=== PATIENT | female | born 1995 | race Caucasian/White ===

== ENCOUNTER 2017-04-20 02:44 | Inpatient (IN) | payer BC ==
[2017-04-20] MEDS ORDERED: Nalbuphine 10 MG/1 ML Vial IVPUSH ONE (03:24)
[2017-04-20] MEDS ORDERED: Lactated Ringers 500 ML IV ONE (03:28)
[2017-04-20] MEDS ORDERED: Carboprost Tromethamine 250 MCG/1 ML Amp IM PRN (03:28)
[2017-04-20] MEDS ORDERED: Ondansetron 4 MG/2 ML SDV IV PRN (03:28)
[2017-04-20] MEDS ORDERED: Methylergonovine 0.2 MG/1 ML Amp IM PRN (03:28)
[2017-04-20] MEDS ORDERED: Sodium Chloride 0.9% 10 ML Syringe FLUSH PRN ×2 (03:28→14:53)
[2017-04-20] MEDS ORDERED: Lidocaine 1% 30 ML SDV INJECT PRN (03:28)
[2017-04-20] MEDS ORDERED: Misoprostol 400 MCG (4 X 100 MCG TAB) RECTAL PRN (03:28)
[2017-04-20] MEDS ORDERED: Oxytocin/Normal Saline 30 UNIT/500 ML BAG IV SCH ×2 (03:45→07:45)
[2017-04-20] MEDS: Lactated Ringers 1,000 ML IV SCH ×4 (04:14→09:42)
[2017-04-20] MEDS ORDERED: Promethazine 25 MG/ML SDV IM ONE (04:45)
[2017-04-20] MEDS ORDERED: fentaNYL 100 MCG/2 ML SDV ONE ×3 (04:47→09:47)
[2017-04-20] MEDS: Ampicillin/Sulbactam Na 3 GM in Sodium Chloride 0.9% 100 ML IV SCH ×4 (04:57→19:14)
--- NOTE | 2017-04-20 05:46 | PCM.PRNOTE ---
- Free Text/Narrative Note: Called to place intrathecal for relief of labor pain in this patient. Upon review of Labs, WBC elevated more than usual for laboring patients (17.7), pt was afebrile, however. Even so, for precaution, had patient recieve antibiotics prior to starting intrathecal ( 3 gms unasyn iv per Dr. Hernandez). Then, after consent signed and monitors on, proceeded to intrathecal. With patient in sitting position, sterile prep and drape. Skin wheal at L3-4 with 1 % lidocaine. 2-3 attempts. Positive, clear, free flowing CSF, with no heme and no paresthesia. Then 6mg mpf, hyperbaric spinal 0.75% marcaine, 20mcg sufenta, 30mcg fentanyl, 0.4ml preservative free normal saline plus epi wash given intrathecally. Pt then supine; block to around T4. Pt's B/P and FHT's remained stable after. Pt reported pain relief with further contractions.
[2017-04-20] MEDS ORDERED: fentaNYL 100 MCG/2 ML SDV IVPUSH ONE (09:27)
[2017-04-20] MEDS ORDERED: Ibuprofen 800 MG Tab ONE (14:36)
[2017-04-20] MEDS: Ibuprofen 800 MG Tab PO PRN ×2 (14:36→23:34)
[2017-04-20] MEDS: Acetaminophen 325 MG Tab PO PRN ×2 (14:36→20:04)
[2017-04-20] MEDS ORDERED: Acetaminophen 325 MG Tab PO PRN (14:40)
[2017-04-20] MEDS ORDERED: Benzocaine/Menthol 20%-0.5% Spray 56 GM Canister TOP PRN (14:53)
[2017-04-20] MEDS ORDERED: Zolpidem 5 MG Tab PO PRN (14:53)
[2017-04-20] MEDS ORDERED: Simethicone 80 MG Tab.Chew PO PRN (14:53)
[2017-04-20] MEDS ORDERED: fentaNYL 100 MCG/2 ML SDV ITHECAL ONE (16:04)
[2017-04-20] MEDS: Docusate Sodium 100 MG Cap PO PRN (20:01)
--- NOTE | 2017-04-20 22:24 | DEL ---
DATE: 04/20/2017 DESCRIPTION: Mrs. Bates has proceeded on very nicely and the heart tones have remained within normal limits, are category 1 in the 2nd stage of labor. She was able to push very nicely and have a spontaneous vaginal delivery from the occiput anterior position of a viable baby boy, who had scores of 8 and 9. The baby boy's weight is still pending. A sample of cord blood was obtained from the umbilical cord, and the placenta is delivered spontaneously and intact. Close inspection of the placenta reveals that it indeed is intact. No episiotomy was done. She did sustain a second-degree perineal and vaginal laceration, which was very closely inspected. The patient did have intrathecal analgesia previously and then also because of her discomfort while I was trying to inspect and repair the laceration, she was also given 50 mg of IV fentanyl initially and then the perineum and vaginal tissues were liberally infiltrated with 1% lidocaine local, and then a short time later, because it was still difficult to get optimum exposure and to give the patient the best pain relief and analgesia, I did give her another 25 mg of fentanyl IV, this seem to help her. I did a very careful and gentle rectal exam before starting the repair just to make sure that there was not an unrecognized buttonhole 4th degree tear of a small nature. None was found on my careful inspection and visualization on the rectal exam. That contaminated glove was now removed and using another clean glove of course, we proceeded to repair the vaginal laceration in the usual fashion. We used 3-0 Vicryl continuous suturing locking many of the sutures for hemostasis. This brought the perineal body and vaginal epithelium together nicely. The vital signs have remained stable at all times. Her estimated blood loss from the entire procedure is approximately 300 mL. The needle, sponge, and instrument count is correct. Only minimal further clots are expressed on the vaginal and fundal exam again at the end of the procedure. The fundus remained firm. She has remained very stable as mentioned above in the area. She and her baby continue to do very well. Follow up instructions will be emphasized with her carefully in her discharge summary and at the time of discharge. [facility] /[id number]
[2017-04-21] MEDS: Acetaminophen 325 MG Tab PO PRN ×4 (04:10→21:00)
[2017-04-21] MEDS: Docusate Sodium 100 MG Cap PO PRN (08:13)
[2017-04-21] MEDS: Ibuprofen 800 MG Tab PO PRN ×2 (08:14→17:10)
[2017-04-21] MEDS: Prenatal Multivitamin with Calcium/Folic Acid/Iron Tab PO SCH (11:48)
--- NOTE | 2017-04-21 14:39 | PN ---
DATE: 04/21/2017 SUBJECTIVE: Argelia is somewhat stiff and sore today from the pushing that she did yesterday. She did have a good night's rest. She is tolerating diet and having adequate hydration and healthy well-balanced nutrition. Her baby boy Gabriel Rincon is somewhat slow to feed and the nurses in the nursery and baby doctor Dr. Leugn are coordinating with the patient regarding this matter. OBJECTIVE: Her vital signs are normal including being afebrile. Her repeat CBC is still pending. She did have white count of 17,700 yesterday. This was felt to be due to the stress of labor and no signs of actual sepsis were suspected. Her extremities are negative today. The fundus is firm. Her lochia flow is within normal limits. PLAN: immigration consultant as well as nursery nurses and Dr. Leung. We will continue to coordinate with the patient regarding the slow feeding of her baby boy. Dr. Cohen would possibly do future circumcision, but of course, if the baby continues to not feed well, the circumcision will be delayed. Otherwise, the patient would be discharged tomorrow on Saturday. Further followup and discharge instructions of a thorough nature will be discussed with Wanda tomorrow at discharge. She will continue to do progressive ambulation at this time. Healthy well balanced nutritional measures and adequate hydration are discussed with her. As mentioned above, repeat CBC is still pending. Baby boy's weight yesterday was later reported as 6 pounds 15 ounces. [facility] /[id number]
--- NOTE | 2017-04-21 18:32 | PCM.POSTAN ---
POST ANESTHESIA ASSESSMENT - MENTAL STATUS Mental Status: alert - VITAL SIGNS Pulse Rate: 86 SaO2: 97 Resp Rate: 16 Blood Pressure: 102/56 Temperature: 36.6 C - RESPIRATORY Respiratory Status: respiratory rate WNL - CARDIOVASCULAR CV Status: pulse rate WNL - GASTROINTESTINAL GI Status: no symptoms - PAIN Free Text/Narrative:: pt c/o minor discomfort at site of intrathecal injection, not requiring meds at this time. - POST OP HYDRATION Hydration Status: adequate & stable (Pt c/o minor, localized numbness around her Left knee. I will evaluate her tomorrow and advise her re: plan if it is still present)
[2017-04-21] MEDS ORDERED: Acetaminophen/Codeine 300-30 MG Tab PO ONE (21:31)
[2017-04-21] MEDS ORDERED: hydrOXYzine HCl 25 MG Tab PO PRN (21:33)
[2017-04-22] MEDS: Ibuprofen 800 MG Tab PO PRN ×2 (01:46→10:50)
[2017-04-22] MEDS ORDERED: Acetaminophen/Codeine 300-30 MG Tab PO PRN (06:03)
--- NOTE | 2017-04-22 09:23 | HP ---
HISTORY: This patient was seen and examined before she did actually deliver her baby. She did come in to Labor and Delivery area early in the morning of 04/20/2017. She has had frequent false labor off and on for 2 to 3 days recently. I have seen her in the clinic on 04/20/2017, and actually, her cervix was so posterior that I could not reach it. She has been experiencing good movement. She is known to be GBS negative. She denies any significant complications that she is aware of. Please see the EHR from the clinic for further detail. I have seen the patient 2 or 3 times prenatally and most of the time, Dr. Cohen has followed her. We did note that her white blood cell count was 17,700 this morning on admission, and I do believe that may be just from her laboring that she has had before she came into the hospital. She did come into the hospital at 4 to 5 cm of dilatation. Bag of fontanez was intact by history. Anesthesia did ask that antibiotics be given before the intrathecal would be given. Anesthesia was wondering if possibly the patient might have urinary tract infection. The patient denies any fever. Denies any cough. There is no tachycardia at the present time and no foul leaking of amniotic fluid. We did begin Unasyn 3 mg IV. I strongly doubt any intra-amniotic infection as such, but at the request of Anesthesia and so that she could get her intrathecal, we did administer the antibiotic. Interestingly, she did have some swelling of the tongue, but no true respiratory difficulty after Unasyn was given. We are going to therefore discontinue her Unasyn and Benadryl was given and we will label her as apparently being allergic to Unasyn or as a penicillin, sulbactam allergy. PAST MEDICAL HISTORY: She denies any knowledge of heart, lung, liver, or kidney disease. ALLERGIES: Please see above. MEDICATIONS: At present, vitamins. FAMILY HISTORY: Noncontributory. 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 She is a nonsmoker. Does not use alcohol. Denies any illicit drug use, of course. PHYSICAL EXAMINATION: VITAL SIGNS: Admission vital signs are within normal limits. Please see the EHR for further detail. HEENT: The remainder of her physical exam reveals the sclerae to be nonicteric. LUNGS: Clear to auscultation. HEART: Regular rhythm without murmur. ABDOMEN: Gravid with category 1 heart tones. The vertex as the presenting part. These category 1 heart tones, of course, have moderate variability and nice accelerations. Estimated weight is 7 pounds 6 ounces. The cervical examination on admission by the nurses revealed her to be 4 to 5 cm. My examination later reveals her to be 9 cm and actually she does convert to complete and has started pushing. EXTREMITIES: Negative. PELVIS: Thought to be adequate, of course. Please see the admission orders. I do anticipate normal spontaneous vaginal delivery. [facility] /[id number]
[2017-04-22 10:38] VITALS: BP 117/77
[2017-04-22] MEDS: Docusate Sodium 100 MG Cap PO PRN (10:50)
[2017-04-22] MEDS: Prenatal Multivitamin with Calcium/Folic Acid/Iron Tab PO SCH (10:50)
--- NOTE | 2017-04-22 10:52 | PCM.SN ---
- Free Text/Narrative Note: Visited with patient again this am prior to d/c, specifically regarding small area of numbness around Left knee. Pt reports that it has improved today, and that she has no motor dysfunction. Encouraged patient to inform us if any changes occur, and to continue taking motrin. I told patient that it should continue to resolve, and to let us know if it worsened.
--- NOTE | 2017-04-24 04:30 | DISCH ---
LOCATION: [facility]. HISTORY OF PRESENT ILLNESS: This patient is a very pleasant 22-year-old, 1, now para 1 patient, who has been followed most of the time by Dr. Cohen during this . She was at 40 weeks 1 day gestation when she entered Labor And Delivery area in very good labor. She has had frequent false labor for several days before that. The patient was 4 to 5 cm dilated when she arrived at Labor and Delivery. Her course has been quite unremarkable. She is known to be GBS negative. Please see the EHR for the remainder of her course and lab data. She was noted to have a white blood cell count of 17,700 in Labor And Delivery, and this also was noted by Anesthesia Department. Anesthesia did ask that the patient have antibiotics to proceed with an intrathecal anesthesia. The patient herself was afebrile. There was no cough. No urinary symptoms. No tachycardia, and no foul smelling amniotic fluid, and no suspicion for chorioamnionitis as such. IV Unasyn 3 g was given to the patient. The patient was noted a while later to have some tongue swelling that presumably is due to either the ampicillin or the sulbactam in Unasyn. She had no respiratory difficulty otherwise other than the tongue noted to be slightly swollen. heart tones have remained in category 1. She has done very well during the intrapartum course. She did proceed on very nicely to have a spontaneous vaginal delivery of a viable boy, who had scores of 8 and 9 and his weight was later reported as 6 pounds 15 ounces, and his name is Gabriel Rincon. The patient did not have an episiotomy. She did sustain a second-degree vaginal and perineal laceration which was repaired very carefully in the usual fashion. Please see my dictated delivery note as well as her dictated admission history and physical. Estimated blood loss was approximately 300 mL at delivery. The patient has done quite well in the course and her baby is somewhat slow to breastfeed and this is being followed closely by business consultant, nursery nurses, and baby doctor Dr. Leung. She did develop a migraine headache the night before we were going to discharge her and she did get some relief with Tylenol #3, and then her headaches seem to come back somewhat, so we did give her Vistaril 25 mg p.o. which seem to abolish her headache. She also noted to me and also reported to Anesthesia that she did have some slight numbness around the skin in a couple of small areas on her left knee cap area. She also states that this has better and seems to be less on the day of discharge. She has no motor or ambulatory difficulties whatsoever. Her extremity examination otherwise is totally negative including no calf or thigh tenderness, and no presence of a Isidro's sign. Anesthesia and I have reviewed her skin numbness, which appears to be getting better with the patient. I do suspect that this will continue to resolve as each week passes and possibly this was a slight and transient peripheral neuropathy from all of her pushing and pelvic nerve pressure during the intrapartum course. The patient is discharged home today on 04/22/2017 in good condition. Her discharge hemoglobin is 9.1. DISCHARGE MEDICATIONS: Will consist of vitamins with iron 1 daily, and also she will utilize either ibuprofen or acetaminophen p.r.n. as well as Colace p.r.n. She also was given a prescription for Vistaril 25 mg, 1 p.o. q.8h to q.12h p.r.n. headache #12, no refills. The importance of healthy well-balanced dietary measures were discussed with her. Adequate hydration was also discussed. The baby appears to be feeding somewhat better and this will be closely monitored by nursery staff and business consultant. She will do gradual progressive ambulation at home. She will call us at once if any questions or problems whatsoever. We did ask her to contact us if any excessive bleeding, excess pain, or fever, also if any persistent or changing problems with her legs, breasts, episiotomy site, abdomen, lungs, etc., she will definitely keep us informed. Her headache is gone at the present time also. FOLLOWUP APPOINTMENT: She will be seeing Dr. Cohen this coming week on approximately Saturday. Baby boy Will Sergey circumcision will be addressed in the near future. Possibly. FINAL DIAGNOSES: 1. Term , delivered. 2. History of migraine. PROCEDURES: Spontaneous vaginal delivery of viable boy, weighing 6 pounds, 15 ounces and having scores of 8 and 9. Repair of second-degree perineal and vaginal laceration by Dr. Joao Hernandez on 04/20/2017. [facility] /[id number]
== END 2017-04-22 16:30 | disposition home or self-care (01) | DRG 560 ==
LOC: DL.OBCHECK 02:44 → DL.OB 03:19 → OBSVTOIN 09:26
PROVIDERS: ADMIT Family Medicine; ATTEND Obstetrics & Gynecology
PROC: 0KQM0ZZ Repair Perineum Muscle, Open Approach (ICD-10-PCS; principal; 2017-04-20)
PROC: 10E0XZZ Delivery of Products of Conception, External Approach (ICD-10-PCS; 2017-04-20)
PROC: 00HU33Z Insertion of Infusion Device into Spinal Canal, Percutaneous Approach (ICD-10-PCS; 2017-04-20)
DX: O70.1 Second degree perineal laceration during delivery (principal); R22.9 Localized swelling, mass and lump, unspecified; O90.89 Other complications of the puerperium, not elsewhere classified; G43.909 Migraine, unspecified, not intractable, without status migrainosus; R20.0 Anesthesia of skin; Z3A.40 40 weeks gestation of pregnancy; Z37.0 Single live birth
CPT/HCPCS: 36415; 85027; A9270-GY; J0295; J2300; J2550; J2590; J3010; J7050; J7120

== ENCOUNTER 2018-05-24 23:38 | Emergency (ER) | payer BC ==
[2018-05-24 23:51] VITALS: BP 129/81
[2018-05-24] MEDS ORDERED: Ketorolac 30 MG/ML SDV IVPUSH ONE (23:54)
[2018-05-24] MEDS ORDERED: Sodium Chloride 0.9% 1,000 ML IV ONE (23:54)
[2018-05-24] MEDS ORDERED: Metoclopramide 10 MG/2 ML SDV IVPUSH ONE (23:55)
--- NOTE | 2018-05-25 00:41 | EDM.PDOC ---
ED HPI GENERAL MEDICAL PROBLEM - General Chief Complaint: Headache Stated Complaint: MIGRAINE [id number] Time Seen by Provider: 05/25/18 00:37 Source of Information: Reports: Patient History Limitations: Reports: No Limitations - History of Present Illness INITIAL COMMENTS - FREE TEXT/NARRATIVE: h/o migraine onset today tried OTC but '0' . been vomiting. 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: Reports: Endometriosis, Musculoskeletal History: Reports: None Neurological History: Reports: Migraines Psychiatric History: Reports: None Endocrine/Metabolic History: Reports: None Hematologic History: Reports: Anemia Immunologic History: Reports: None Oncologic (Cancer) History: Reports: None Dermatologic History: Reports: None - Infectious Disease History Infectious Disease History: Reports: Chicken Pox - Past Surgical History Head Surgeries/Procedures: Reports: None HEENT Surgical History: Reports: Adenoidectomy, Oral Surgery, Tonsillectomy Social & Family History - Family History Family Medical History: Noncontributory - Tobacco Use Smoking Status *Q: Never Smoker - Caffeine Use Caffeine Use: Reports: Coffee - Recreational Drug Use Recreational Drug Use: No ED ROS GENERAL - Review of Systems Review Of Systems: ROS reveals no pertinent complaints other than HPI. - Physical Exam Exam: See Below Exam Limited By: No Limitations General Appearance: Alert, WD/WN, Mild Distress, Moderate Distress, Other ( crying) Eye Exam: Bilateral Eye: PERRL (pupils ER @ 4mm, photophobic) Ears: Hearing Grossly Normal Throat/Mouth: Normal Voice, No Airway Compromise Head Exam: Atraumatic Neck: Non-Tender, Full Range of Motion Respiratory/Chest: No Respiratory Distress Cardiovascular: Regular Rate, Rhythm GI/Abdominal: Soft, Non-Tender Neuro Exam (Abbreviated): Alert, Oriented, Normal Cognition, Normal Gait, No Motor/Sensory Deficits Psychiatric: Tearful Skin Exam: Warm, Dry, Normal Color Course - Vital Signs Last Recorded V/S: Last Vital Signs Temp 36.6 C 05/24/18 23:47 Pulse 84 05/24/18 23:47 Resp 18 05/24/18 23:47 BP 129/81 05/24/18 23:47 Pulse Ox 100 05/24/18 23:47 - Orders/Labs/Meds Orders: Active Orders 24 hr Category Date Time Status Sodium Chloride 0.9% [Normal Saline] 1,000 ml Med 05/24/18 23:54 Active IV .BOLUS Medication Orders Sodium Chloride (Normal Saline) 1,000 mls @ 999 mls/hr IV .BOLUS ONE Stop: 05/25/18 00:54 Last Admin: 05/25/18 00:03 Dose: 999 mls/hr Meds: Medications Generic Name Dose Route Start Last Admin Trade Name Freq PRN Reason Stop Dose Admin Sodium Chloride 1,000 mls @ 999 mls/hr 05/24/18 23:54 05/25/18 00:03 Normal Saline IV 05/25/18 00:54 999 mls/hr .BOLUS ONE Administration Discontinued Medications Generic Name Dose Route Start Last Admin Trade Name Freq PRN Reason Stop Dose Admin Ketorolac Tromethamine 30 mg 05/24/18 23:54 05/25/18 00:06 Toradol IVPUSH 05/24/18 23:55 30 mg ONETIME ONE Administration Metoclopramide HCl 10 mg 05/24/18 23:55 05/25/18 00:04 Reglan IVPUSH 05/24/18 23:56 10 mg ONETIME ONE Administration Departure - Departure Time of Disposition: 00:41 Disposition: Home, Self-Care 01 Condition: Good Clinical Impression: Migraine - Discharge Information Instructions: Recurrent Migraine Headache, [id number] Forms: ED Department Discharge Additional Instructions: 1) rest 2) recheck as needed - My Orders Last 24 Hours: My Active Orders 05/24/18 23:54 Sodium Chloride 0.9% [Normal Saline] 1,000 ml IV .BOLUS - Assessment/Plan Last 24 Hours: My Active Orders 05/24/18 23:54 Sodium Chloride 0.9% [Normal Saline] 1,000 ml IV .BOLUS
== END 2018-05-25 00:38 | disposition home or self-care (01) ==
LOC: DL.ED 23:38
DX: G43.909 Migraine, unspecified, not intractable, without status migrainosus (principal); Z79.899 Other long term (current) drug therapy; Z88.8 Allergy status to other drugs, medicaments and biological substances
CPT/HCPCS: 96365; 96375; 99283; J1885; J2765; J7030

== ENCOUNTER 2020-02-11 21:17 | Inpatient (IN) | payer BC ==
[2020-02-11] MEDS ORDERED: Oxytocin/Normal Saline 30 UNIT/500 ML BAG ONE (22:12)
[2020-02-11] MEDS ORDERED: fentaNYL 100 MCG/2 ML SDV ONE (22:13)
[2020-02-11] MEDS ORDERED: EPINEPHrine 1 MG/1 ML Amp ONE (22:14)
[2020-02-11] MEDS: Lactated Ringers 1,000 ML IV SCH ×3 (22:15→22:32)
[2020-02-11] MEDS ORDERED: Sodium Chloride 0.9% 10 ML Syringe FLUSH PRN (22:25)
[2020-02-11] MEDS ORDERED: Lidocaine 1% 30 ML SDV INJECT PRN (22:25)
[2020-02-11] MEDS ORDERED: Tranexamic Acid 1,000 MG in Sodium Chloride 0.9% 100 ML IV PRN (22:25)
[2020-02-11] MEDS ORDERED: Ondansetron 4 MG/2 ML SDV IVPUSH PRN (22:25)
[2020-02-11] MEDS ORDERED: Carboprost Tromethamine 250 MCG/1 ML Amp IM PRN (22:25)
[2020-02-11] MEDS ORDERED: Methylergonovine 0.2 MG/1 ML Amp IM PRN (22:25)
[2020-02-11] MEDS ORDERED: Misoprostol 400 MCG (4 X 100 MCG TAB) RECTAL PRN (22:25)
[2020-02-11] MEDS ORDERED: Metoclopramide 10 MG/2 ML SDV IVPUSH PRN (22:29)
[2020-02-11] MEDS ORDERED: Oxytocin/Normal Saline 30 UNIT/500 ML BAG IV SCH (22:30)
--- NOTE | 2020-02-11 22:46 | PCM.LDHP ---
L&D History of Present Illness - General Date of Service: 02/11/20 (admit H&P) Admit Problem/Dx: Patient Status Order with Admit Dx/Problem 02/11/20 22:00 Patient Status [ADT] Routine Admission Diagnosis/Problem Admission Diagnosis/Problem Labor established Source of Information: Patient, Family, Provider, Other (EPIC episode and notes/problem list) History Limitations: Reports: No Limitations - History of Present Illness Timing/Duration: Reports: minutes: (3), getting worse Location, : Reports: Uterus Quality: Reports: Pressure Severity: Moderate - Related Data Allergies/Adverse Reactions: Allergies Allergy/AdvReac Type Severity Reaction Status Date / Time ondansetron Allergy Headache Verified 10/04/18 12:31 [From Zofran (as hydrochloride)] Home Medications: Home Meds No122/Iron/Folic Acid [ Multi Tablet] 1 tab PO DAILY 02/10/17 [ History] Ascorbic Acid/Ascorbate Sodium [Vitamin C 500 mg Wafer] 500 mg PO DAILY [History] Ferrous Sulfate [Iron] 1 tab PO DAILY 02/11/20 [History] L.acidoph,Paracasei, B.lactis [Probiotic] 1 tab PO DAILY 02/11/20 [History] Past Medical History HEENT History: Reports: None Cardiovascular History: Reports: None Respiratory History: Reports: None Gastrointestinal History: Reports: None Genitourinary History: Reports: None 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: Endometriosis, Musculoskeletal History: Reports: None Neurological History: Reports: Migraines Psychiatric History: Reports: None Endocrine/Metabolic History: Reports: None Hematologic History: Reports: Anemia Immunologic History: Reports: None Oncologic (Cancer) History: Reports: None Dermatologic History: Reports: None - Infectious Disease History Infectious Disease History: Reports: Chicken Pox - Past Surgical History Head Surgeries/Procedures: Reports: None HEENT Surgical History: Reports: Adenoidectomy, Oral Surgery, Tonsillectomy Social & Family History - Family History Family Medical History: Noncontributory - Tobacco Use Smoking Status *Q: Never Smoker Tobacco Use Within Last Twelve Months: No Used Tobacco, but Quit: No Smoking Cessation Information Provided To Patient: No - Caffeine Use Caffeine Use: Reports: Coffee - Alcohol Use Alcohol Use History: No Alcohol Use in Last Twelve Months: No - Recreational Drug Use Recreational Drug Use: No Drug Use in Last 12 Months: No - Sexual History Sexual History: Reports: Single Partner, Vaginal [place] - Living Situation & Occupation Living situation: Reports: , with Family Occupation: Employed Social History Comment: to Tamir. Son Will. 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 They live near [place]. 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 Nonsmoker and no hx ETOH or drug abuse. They are delighted to be expecting another child. [facility] H&P Review of Systems - Review of Systems: Review Of Systems: Comprehensive ROS is negative, except as noted in HPI. L&D Exam - Exam Exam: See Below - Vital Signs Vital Signs: see nursing graphic afebrile, VSS - OB Specific Fundal Height In cm: 40 Contraction Frequency (min): 3 Contraction Intensity: Moderate Movement: Active Heart Tones: Present Heart Tones per Min: 150 (145-150s) Heart Rate (FHR) Variability: Moderate (6-25 bmp) Presentation: Vertex Estimated Weight: 8 1/2 lb - Guevara Score Guevara Score Cervix Position: Anterior Guevara Score Consistency: Soft Guevara Score Effacement: 51-70% Guevara Score Dilation: > 5 cm Guevara Score Infant's Station: +1, +2 Guevara Score Total: 12 - Exam General: Alert, Oriented HEENT: Conjunctiva Clear, Nares Patent, Pupils Equal, Pupils Reactive Neck: Supple Lungs: Clear to Auscultation, Normal Respiratory Effort Cardiovascular: Regular Rate, Regular Rhythm GI/Abdominal Exam: Normal Bowel Sounds, Soft Rectal Exam: Normal Exam Genitourinary: Cervical dilitation (anterior rim, soft, 1cm rim left just in the front (was 6 cm on arrival)), Cervical fluid (AROM clear fluid) Back Exam: Normal Inspection, Full Range of Motion Extremities: Normal Inspection, Non-Tender, No Pedal Edema, Normal Capillary Refill Skin: Warm, Dry, Intact Neurological: Normal Speech, Normal Tone, Sensation Intact Psychiatric: Alert, Normal Affect - Patient Data Lab Results Last 24 hrs: Laboratory Results - last 24 hr 02/11/20 Range/Units 21:48 WBC 14.8 H (5.0-10.0) 10^3/uL RBC 4.14 L (4.2-5.4) 10^6/uL Hgb 12.6 D (12.0-16.0) g/dL Hct 36.6 L (37.0-47.0) % MCV 88.4 D (80-100) fL MCH 30.4 (27.0-34.0) pg MCHC 34.4 (33.0-35.0) g/dL Plt Count 247 D (150-450) 10^3/uL Result Diagrams: 02/11/20 21:48 - Problem List (1) First stage of labor established SNOMED Code(s): 651679393 ICD Code: [id number] - Status: Acute Current Visit: Yes (2) Blood type O+ SNOMED Code(s): 447867932 ICD Code: Z67.40 - TYPE O BLOOD, RH POSITIVE Status: Acute Current Visit : Yes (3) Rubella immune SNOMED Code(s): 259320613 ICD Code: Z78.9 - OTHER SPECIFIED HEALTH STATUS Status: Acute Current Visit: Yes (4) Group B Streptococcus not isolated SNOMED Code(s): 081156686 ICD Code: LSI7071 - Status: Acute Current Visit: Yes (5) Mother currently breast-feeding SNOMED Code(s): 681197683 ICD Code: Z39.1 - ENCOUNTER FOR CARE AND EXAMINATION OF LACTATING MOTHER Status: Acute Current Visit: Yes (6) Macrosomic baby SNOMED Code(s): 05120874 ICD Code: P08.0 - EXCEPTIONALLY LARGE BABY Status: Acute Current Visit: Yes (7) (spontaneous vaginal delivery) SNOMED Code(s): 271294159 ICD Code: O80 - ENCOUNTER FOR FULL-TERM UNCOMPLICATED DELIVERY Status: Acute Current Visit: Yes (8) Term delivered SNOMED Code(s): 62604665, 210982457 ICD Code: O80 - ENCOUNTER FOR FULL-TERM UNCOMPLICATED DELIVERY Status: Acute Current Visit: Yes Problem List Initiated/Reviewed/Updated: Yes Orders Last 24hrs: Active Orders 24 hr Category Date Time Status Patient Status [ADT] Routine ADT 02/11/20 22:00 Active Communication Order [RC] ASDIRECTED Care 02/11/20 22:25 Ordered Heart Tones [RC] PER UNIT ROUTINE Care 02/11/20 22:25 Ordered Notify Provider Vital Signs OB [RC] ASDIRECTED Care 02/11/20 22:25 Ordered Notify Provider [RC] PRN Care 02/11/20 22:25 Ordered Pump Management, Intrathecal [RC] ASDIRECTED Care 02/11/20 21:42 Active Up ad Marci [RC] ASDIRECTED Care 02/11/20 22:25 Ordered Vital Signs [RC] PER UNIT ROUTINE Care 02/11/20 22:25 Ordered Acetaminophen [Tylenol] Med 02/11/20 22:25 Ordered 650 mg PO Q4H PRN Carboprost Tromethamine [Hemabate DS] Med 02/11/20 22:25 Ordered 250 mcg IM ASDIRECTED PRN Lactated Ringers [Ringers, Lactated] 1,000 ml Med 02/11/20 21:45 Active IV ASDIRECTED Lidocaine 1% [Xylocaine-MPF 1%] Med 02/11/20 22:25 Ordered 30 ml INJECT ASDIRECTED PRN Methylergonovine [Methergine] Med 02/11/20 22:25 Ordered 0.2 mg IM ASDIRECTED PRN Metoclopramide [Reglan] Med 02/11/20 22:29 Ordered 10 mg IVPUSH ONETIME PRN Ondansetron [Zofran] Med 02/11/20 22:25 Ordered 4 mg IVPUSH Q4H PRN Oxytocin 30 Units in NS @ 2 MUNITS/MIN(500ml) Med 02/11/20 22:30 Ordered Oxytocin/Normal Saline [Pitocin in NS 30 UNIT/500 ML] 30 unit in 500 ml IV TITRATE Sodium Chloride 0.9% [Saline Flush] Med 02/11/20 22:25 Ordered 10 ml FLUSH ASDIRECTED PRN Tranexamic Acid [Cyklokapron] 1,000 mg Med 02/11/20 22:25 Ordered Sodium Chloride 0.9% [Normal Saline] 100 ml IV ONETIME miSOPROStoL [Cytotec] Med 02/11/20 22:25 Ordered 800 mcg RECTAL ASDIRECTED PRN Saline Lock Insert [OM.PC] Routine Oth 02/11/20 22:25 Ordered Resuscitation Status Routine Resus Stat 02/11/20 22:25 Ordered Medication Orders Acetaminophen (Tylenol) 650 mg PO Q4H PRN PRN Reason: Pain (Mild 1-3) and fever Carboprost Tromethamine (Hemabate Ds) 250 mcg IM ASDIRECTED PRN PRN Reason: HEMORRHAGE Lactated Ringer's (Ringers, Lactated) 1,000 mls @ 125 mls/hr IV ASDIRECTED JAMIR Last Admin: 02/11/20 22:32 Dose: 125 mls/hr Infusion: 02/11/20 22:32 Dose: 125 mls/hr Admin: 02/11/20 22:18 Dose: 125 mls/hr Infusion: 02/11/20 22:18 Dose: 125 mls/hr Admin: 02/11/20 22:15 Dose: 125 mls/hr Oxytocin/Sodium Chloride (Pitocin In Ns 30 Unit/500 Ml) 30 unit in 500 mls @ 2 mls/hr IV TITRATE JAMIR; Protocol Tranexamic Acid 1,000 mg/ (Sodium Chloride) 110 mls @ 660 mls/hr IV ONETIME PRN PRN Reason: Bleeding Lidocaine HCl (Xylocaine-Mpf 1%) 30 ml INJECT ASDIRECTED PRN PRN Reason: Perineal Repair Methylergonovine Maleate (Methergine) 0.2 mg IM ASDIRECTED PRN PRN Reason: Hemorrhage Metoclopramide HCl (Reglan) 10 mg IVPUSH ONETIME PRN PRN Reason: nausea Misoprostol (Cytotec) 800 mcg RECTAL ASDIRECTED PRN PRN Reason: Hemorrhage Ondansetron HCl (Zofran) 4 mg IVPUSH Q4H PRN PRN Reason: Nausea/Vomiting Sodium Chloride (Saline Flush) 10 ml FLUSH ASDIRECTED PRN PRN Reason: Keep Vein Open Assessment/Plan Comment:: Assessment: Argelia is a delightful 25yo WF @ 39w6d who presented in active labor, cervix @ 6cm with bulging BOWI NST reactive blood type o+ GBS negative Rubella immune plans to breastfeed Plan: patient is admitted CBC drawn: hgb 12.6, PLT 247 plans intrathecal when ready anticipate breast feed, room in as much as possible routine admit orders. continue to follow closely. [facility]
--- NOTE | 2020-02-11 22:56 | PCM.PRNOTE ---
- Free Text/Narrative Note: Requested to provide analgesia to full term patient in severe pain. Upon entering the room, patient is sitting on edge of bed complaining of severe abdominal/pelvic pain and discomfort. Procedure was discussed with patient including adverse outcomes and expectations. Pt consented to analgesia, SAB/ IT. Pt placed into a proper sitting position. Landmarks for SAB/IT were identified and marked. Hands were washed and appropriate PPE was applied. Back was prepped with betadine x3. A sterile, transparent, fenestrated drape was applied. Excess betadine was removed. Using 3 mL of a 1% lidocaine solution , a skin wheel was placed at the L2/L3 interspace. A 24 ga (4 inch) Pencan spinal needle was inserted until positive for CSF. Negative for heme or paresthesias. Injected fentanyl 30 mcg, sufentanil 25 mcg, and 7.5 mg of a 0.75 % bupivacaine solution with an epi wash. Pt was placed left lateral position for approximately 20 minutes. There were zero complications or adverse outcomes. Will continue to monitor. Procedure Date & Time: 02/11/20 [id number]
[2020-02-12] MEDS ORDERED: Zolpidem 5 MG Tab PO PRN (01:38)
[2020-02-12] MEDS ORDERED: Simethicone 80 MG Tab.Chew PO PRN (01:38)
[2020-02-12] MEDS ORDERED: Benzocaine/Menthol 20%-0.5% Spray 56 GM Canister TOP PRN (01:38)
--- NOTE | 2020-02-12 01:58 | PCM.DEL ---
L & D Note - General Info Date of Service: 02/12/20 (Time of delivery: 0102) Mother's Due Date: 02/12/20 (40w0d) - Delivery Note Labor: Spontaneous Delivery Outcome: Livebirth Delivery Method: Spontaneous Vaginal Delivery-Single Delivery Mode: Spontaneous Presentation: Left Occiput Anterior (RAFAELA) Nuchal Cord: None Prep: Povidone-Iodine (Betadine Anesthesia Type: Intrathecal Amniotic Fluid Description: Clear Episiotomy Type: None Laceration: 2nd Degree Suture type: Vicryl Suture size: 3-0 Placenta: Intact, Expressed Cord: 3 Vessels Estimated Blood Loss: 300 Resuscitation Needed: No [place]: Suctioned, Bulb Syringe, Stimulated, Warmed, Ellis Used Provider: Mery Cohen Second Stage Interventions: Reports: Encouragement Given, Laboring Down, Pushing Effectively, Pushing, Pulls Own Legs Back Delivery Comments (Free Text/Narrative):: Argelia was allowed to labor down with a rim of cervix as baby was in an LOP position. she began to feel pressure, and baby was noted to be changing to RAFAELA. she was allowed to push, and was most comfortable and effective bringing her own legs back, and with support by and staff. she pushed for a total of 8 minutes, with 5 cxns delivering a viable LGA female in RAFAELA position with hand posteriorly, causing 2nd degree laceration with bleeding noted. remainder of baby delivered without difficulty, and was placed on mother's chest for skin to skin contact and bonding. dried, stimulated, and had strong cry and excellent scores, which are still pending at this time. cord doubly clamped, then cut by /FOB Tamir. 3VC noted, cord blood obtained. placenta delivered intact with gentle traction, and was inspected and found to be compelte, intact. central cord insertion. uterus firming up nicely with massage and IV pitocin per protocol. 2nd degree laceration repaired in standard fashion with 2-0 & 3-0 suture with excellent results. EBL 250-300 cc. there were no complications. BW 4155g, 9lb2oz. both mom and baby doing well and will follow routine orders and cares. Family happy with care and plan at this time. b - General Info Date of Service: 02/12/20 - Patient Data Vitals - Most Recent: Last Vital Signs Temp 97.8 F 02/11/20 21:30 Pulse 75 02/11/20 22:00 Resp 16 02/11/20 22:00 BP 121/71 02/11/20 22:00 Pulse Ox Weight - Most Recent: 170 lb Lab Results Last 24 Hours: Laboratory Results - last 24 hr 02/11/20 Range/Units 21:48 WBC 14.8 H (5.0-10.0) 10^3/uL RBC 4.14 L (4.2-5.4) 10^6/uL Hgb 12.6 D (12.0-16.0) g/dL Hct 36.6 L (37.0-47.0) % MCV 88.4 D (80-100) fL MCH 30.4 (27.0-34.0) pg MCHC 34.4 (33.0-35.0) g/dL Plt Count 247 D (150-450) 10^3/uL Med Orders - Current: Current Medications Acetaminophen (Tylenol) 650 mg PO Q4H PRN PRN Reason: Pain (Mild 1-3) and fever Benzocaine/Menthol (Dermoplast Pain Relief [place]) 0 gm TOP Q4H PRN PRN Reason: Perineal comfort measures Carboprost Tromethamine (Hemabate Ds) 250 mcg IM ASDIRECTED PRN PRN Reason: HEMORRHAGE Docusate Sodium (Colace) 100 mg PO BID PRN PRN Reason: Constipation Lactated Ringer's (Ringers, Lactated) 1,000 mls @ 125 mls/hr IV ASDIRECTED [facility] Last Admin: 02/11/20 22:32 Dose: 125 mls/hr Oxytocin/Sodium Chloride (Pitocin In Ns 30 Unit/500 Ml) 30 unit in 500 mls @ 2 mls/hr IV TITRATE JAMIR; Protocol Tranexamic Acid 1,000 mg/ (Sodium Chloride) 110 mls @ 660 mls/hr IV ONETIME PRN PRN Reason: Bleeding Ibuprofen (Motrin) 800 mg PO Q8H PRN PRN Reason: Mild Pain or Fever Lidocaine HCl (Xylocaine-Mpf 1%) 30 ml INJECT ASDIRECTED PRN PRN Reason: Perineal Repair Methylergonovine Maleate (Methergine) 0.2 mg IM ASDIRECTED PRN PRN Reason: Hemorrhage Metoclopramide HCl (Reglan) 10 mg IVPUSH ONETIME PRN PRN Reason: nausea Misoprostol (Cytotec) 800 mcg RECTAL ASDIRECTED PRN PRN Reason: Hemorrhage Ondansetron HCl (Zofran) 4 mg IVPUSH Q4H PRN PRN Reason: Nausea/Vomiting Stop: 02/12/20 00:13 Prenat Multivit/Prince/Iron/Folic Ac ( Plus Iron) 1 each PO DAILY JAMIR Simethicone (Simethicone) 80 mg PO Q4H PRN PRN Reason: Gas Sodium Chloride (Saline Flush) 10 ml FLUSH ASDIRECTED PRN PRN Reason: Keep Vein Open Witch Orquidea (Medi-Pads) 1 each TOP Q4HR PRN PRN Reason: Perineal Comfort Measure Zolpidem Tartrate (Ambien) 5 mg PO BEDTIME PRN PRN Reason: Insomnia Discontinued Medications Epinephrine HCl (Adrenalin) Confirm Administered Dose 1 mg .ROUTE .STK-MED ONE Stop: 02/11/20 22:15 Fentanyl (Sublimaze) Confirm Administered Dose 100 mcg .ROUTE .STK-MED ONE Stop: 02/11/20 22:14 Oxytocin/Sodium Chloride (Pitocin In Ns 30 Unit/500 Ml) Confirm Administered Dose 30 unit in 500 mls @ as directed .ROUTE .STK-MED ONE Stop: 02/11/20 22:13 Sufentanil Citrate (Sufenta) Confirm Administered Dose 50 mcg .ROUTE .STK-MED ONE Stop: 02/11/20 22:15 - Problem List & Annotations (1) First stage of labor established SNOMED Code(s): 902075146 Code(s): ZQQ3077 - Status: Acute Current Visit: Yes (2) Blood type O+ SNOMED Code(s): 616810434 Code(s): Z67.40 - TYPE O BLOOD, RH POSITIVE Status: Acute Current Visit: Yes (3) Rubella immune SNOMED Code(s): 456706550 Code(s): Z78.9 - OTHER SPECIFIED HEALTH STATUS Status: Acute Current Visit: Yes (4) Group B Streptococcus not isolated SNOMED Code(s): 344201827 Code(s): VDK8613 - Status: Acute Current Visit: Yes (5) Mother currently breast-feeding SNOMED Code(s): 200200160 Code(s): Z39.1 - ENCOUNTER FOR CARE AND EXAMINATION OF LACTATING MOTHER Status: Acute Current Visit: Yes (6) Macrosomic baby SNOMED Code(s): 15646045 Code(s): P08.0 - EXCEPTIONALLY LARGE BABY Status: Acute Current Visit: Yes (7) (spontaneous vaginal delivery) SNOMED Code(s): 198665612 Code(s): O80 - ENCOUNTER FOR FULL-TERM UNCOMPLICATED DELIVERY Status: Acute Current Visit: Yes (8) Term delivered SNOMED Code(s): 13994745, 595085741 Code(s): O80 - ENCOUNTER FOR FULL-TERM UNCOMPLICATED DELIVERY Status: Acute Current Visit: Yes - Problem List Review Problem List Initiated/Reviewed/Updated: Yes - My Orders Last 24 Hours: My Active Orders 02/11/20 21:42 Pump Management, Intrathecal [RC] ASDIRECTED 02/11/20 21:45 Lactated Ringers [Ringers, Lactated] 1,000 ml IV ASDIRECTED 02/11/20 22:00 Patient Status [ADT] Routine 02/11/20 22:25 Communication Order [RC] ASDIRECTED Heart Tones [RC] PER UNIT ROUTINE Notify Provider Vital Signs OB [RC] ASDIRECTED Notify Provider [RC] PRN Up ad Marci [RC] ASDIRECTED Vital Signs [RC] PER UNIT ROUTINE Acetaminophen [Tylenol] 650 mg PO Q4H PRN Carboprost Tromethamine [Hemabate DS] 250 mcg IM ASDIRECTED PRN Lidocaine 1% [Xylocaine-MPF 1%] 30 ml INJECT ASDIRECTED PRN Methylergonovine [Methergine] 0.2 mg IM ASDIRECTED PRN Ondansetron [Zofran] 4 mg IVPUSH Q4H PRN Sodium Chloride 0.9% [Saline Flush] 10 ml FLUSH ASDIRECTED PRN Tranexamic Acid [Cyklokapron] 1,000 mg Sodium Chloride 0.9% [Normal Saline] 100 ml IV ONETIME miSOPROStoL [Cytotec] 800 mcg RECTAL ASDIRECTED PRN Saline Lock Insert [OM.PC] Routine Resuscitation Status Routine 02/11/20 22:30 Oxytocin/Normal Saline [Pitocin in NS 30 UNIT/500 ML] 30 unit in 500 ml IV TITRATE 04/10/20 01:38 Consult to Fairing Man [CONS] Routine Benzocaine/Menthol [Dermoplast Pain Relief [place]] See Dose Instructions TOP Q4H PRN Docusate Sodium [Colace] 100 mg PO BID PRN Ibuprofen [Motrin] 800 mg PO Q8H PRN Simethicone 80 mg PO Q4H PRN Zolpidem [Ambien] 5 mg PO BEDTIME PRN witch Orquidea [Medi-Pads] 1 each TOP Q4HR PRN Assess Lochia [WOMSER] Per Unit Routine Assess Uterine Involution [WOMSER] Per Unit Routine Breast Pump [WOMSER] Per Unit Routine Ice Therapy [OM.PC] Per Unit Routine Perineal Care [OM.PC] Per Unit Routine Sitz Bath [OM.PC] Per Unit Routine 02/12/20 09:00 Vit with Ca/FA/Iron [ Plus Iron] 1 each PO DAILY 02/12/20 Breakfast Regular Diet [DIET] 02/13/20 05:11 CBC W/O DIFF,HEMOGRAM [HEME] AM - Plan Plan:: Assessment: Argelia is a delightful 25yo WF @ 39w6d who presented in active labor, cervix @ 6cm with bulging BOWI NST reactive blood type o+ GBS negative Rubella immune plans to breastfeed Plan: patient is admitted CBC drawn: hgb 12.6, PLT 247 plans intrathecal when ready anticipate breast feed, room in as much as possible routine admit orders. continue to follow closely. [facility] 02-12-2020 Delivery: time: 102 viable macrosomic female BW 9lb 2oz, 4155g APGARs pending. [facility]
[2020-02-12] MEDS: Ibuprofen 800 MG Tab PO PRN ×3 (03:35→19:34)
[2020-02-12] MEDS: Acetaminophen 325 MG Tab PO PRN ×3 (05:50→19:33)
[2020-02-12] MEDS ORDERED: Prenatal Multivitamin with Calcium/Folic Acid/Iron Tab PO SCH (09:00)
[2020-02-12] MEDS: Docusate Sodium 100 MG Cap PO PRN (11:21)
[2020-02-12] MEDS: PRENATAL VITAMIN PO SCH (23:33)
[2020-02-13] MEDS: Ibuprofen 800 MG Tab PO PRN ×2 (08:43→17:10)
[2020-02-13] MEDS: Docusate Sodium 100 MG Cap PO PRN ×2 (08:43→20:39)
[2020-02-13] MEDS: Acetaminophen 325 MG Tab PO PRN ×3 (08:46→17:10)
--- NOTE | 2020-02-13 11:17 | PCM.PNPP ---
- General Info Date of Service: 02/13/20 (PPD # 1 S/P ) Functional Status: Reports: Pain Controlled, Tolerating Diet, Ambulating, Urinating - Review of Systems General: Reports: No Symptoms HEENT: Reports: No Symptoms Pulmonary: Reports: No Symptoms Cardiovascular: Reports: No Symptoms Gastrointestinal: Reports: No Symptoms Genitourinary: Reports: No Symptoms Musculoskeletal: Reports: No Symptoms Skin: Reports: No Symptoms Neurological: Reports: No Symptoms Psychiatric: Reports: No Symptoms - General Info Date of Service: 02/13/20 (PPD #1 S/P ) - Patient Data Vital Signs - Most Recent: Last Vital Signs Temp 99 F 02/13/20 08:00 Pulse 87 02/13/20 08:00 Resp 16 02/13/20 08:00 BP 124/74 02/13/20 08:00 Pulse Ox 96 02/13/20 08:00 Weight - Most Recent: 170 lb Lab Results - Last 24 Hours: Laboratory Results - last 24 hr 02/13/20 Range/Units 05:47 WBC 14.3 H (5.0-10.0) 10^3/uL RBC 3.59 L (4.2-5.4) 10^6/uL Hgb 10.9 L D (12.0-16.0) g/dL Hct 32.8 L (37.0-47.0) % MCV 91.4 D (80-100) fL MCH 30.4 (27.0-34.0) pg MCHC 33.2 (33.0-35.0) g/dL Plt Count 198 (150-450) 10^3/uL Med Orders - Current: Current Medications Acetaminophen (Tylenol) 650 mg PO Q4H PRN PRN Reason: Pain (Mild 1-3) and fever Last Admin: 02/13/20 08:46 Dose: 650 mg Benzocaine/Menthol (Dermoplast Pain Relief [place]) 0 gm TOP Q4H PRN PRN Reason: Perineal comfort measures Last Admin: 02/12/20 05:51 Dose: 1 spray Carboprost Tromethamine (Hemabate Ds) 250 mcg IM ASDIRECTED PRN PRN Reason: HEMORRHAGE Docusate Sodium (Colace) 100 mg PO BID PRN PRN Reason: Constipation Last Admin: 02/13/20 08:43 Dose: 100 mg Lactated Ringer's (Ringers, Lactated) 1,000 mls @ 125 mls/hr IV ASDIRECTED JAMIR Last Admin: 02/11/20 22:32 Dose: 125 mls/hr Oxytocin/Sodium Chloride (Pitocin In Ns 30 Unit/500 Ml) 30 unit in 500 mls @ 2 mls/hr IV TITRATE JAMIR; Protocol Last Titration: 02/12/20 04:00 Dose: 0 mls/hr Tranexamic Acid 1,000 mg/ (Sodium Chloride) 110 mls @ 660 mls/hr IV ONETIME PRN PRN Reason: Bleeding Ibuprofen (Motrin) 800 mg PO Q8H PRN PRN Reason: Mild Pain or Fever Last Admin: 02/13/20 08:43 Dose: 800 mg Lidocaine HCl (Xylocaine-Mpf 1%) 30 ml INJECT ASDIRECTED PRN PRN Reason: Perineal Repair Methylergonovine Maleate (Methergine) 0.2 mg IM ASDIRECTED PRN PRN Reason: Hemorrhage Metoclopramide HCl (Reglan) 10 mg IVPUSH ONETIME PRN PRN Reason: nausea Misoprostol (Cytotec) 800 mcg RECTAL ASDIRECTED PRN PRN Reason: Hemorrhage Vitamin (Pt Own Med) 0 each PO BEDTIME JAMIR Last Admin: 02/12/20 23:33 Dose: 1 each Simethicone (Simethicone) 80 mg PO Q4H PRN PRN Reason: Gas Sodium Chloride (Saline Flush) 10 ml FLUSH ASDIRECTED PRN PRN Reason: Keep Vein Open Witch Orquidea (Medi-Pads) 1 each TOP Q4HR PRN PRN Reason: Perineal Comfort Measure Last Admin: 02/12/20 05:51 Dose: 2 pad Zolpidem Tartrate (Ambien) 5 mg PO BEDTIME PRN PRN Reason: Insomnia Discontinued Medications Epinephrine HCl (Adrenalin) Confirm Administered Dose 1 mg .ROUTE .STK-MED ONE Stop: 02/11/20 22:15 Last Admin: 02/12/20 03:00 Dose: Not Given Fentanyl (Sublimaze) Confirm Administered Dose 100 mcg .ROUTE .STK-MED ONE Stop: 02/11/20 22:14 Last Admin: 02/12/20 03:00 Dose: Not Given Oxytocin/Sodium Chloride (Pitocin In Ns 30 Unit/500 Ml) Confirm Administered Dose 30 unit in 500 mls @ as directed .ROUTE .STK-MED ONE Stop: 02/11/20 22:13 Last Admin: 02/12/20 06:36 Dose: Not Given Ondansetron HCl (Zofran) 4 mg IVPUSH Q4H PRN PRN Reason: Nausea/Vomiting Stop: 02/12/20 00:13 Prenat Multivit/Dry Transfer Man/Iron/Folic Ac ( Plus Iron) 1 each PO DAILY JAMIR Last Admin: 02/12/20 11:53 Dose: Not Given Sufentanil Citrate (Sufenta) Confirm Administered Dose 50 mcg .ROUTE .STK-MED ONE Stop: 02/11/20 22:15 Last Admin: 02/12/20 03:00 Dose: Not Given - Infant Interaction Disposition, : [place] in Room with Family Infant Interaction: Holding Infant Infant Feeding: Attempted ; Nursed Fair/Poor, Continues to Breastfeed, Encouraged to Breastfeed Support Person: - Recovery Exam Fundal Tone: Firm Fundal Level: 2 Fingerbreadths Below Umbilicus Fundal Placement: Midline Lochia Amount: Small Lochia Color: Rubra/Red Perineum Description: Intact, Minimal Bruising/Swelling Episiotomy/Laceration: Approximated Bladder Status: Voiding Urinary Elimination: Voided - Exam General: Alert, Oriented, Cooperative, No Acute Distress HEENT: Pupils Equal, Pupils Reactive, EOMI, Mucous Membr. Moist/[place] Neck: Supple Lungs: Clear to Auscultation, Normal Respiratory Effort Cardiovascular: Regular Rate, Regular Rhythm GI/Abdominal Exam: Normal Bowel Sounds, Soft, Non-Tender, No Organomegaly, No Distention Extremities: Normal Inspection, Normal Range of Motion, Non-Tender, No Pedal Edema, Normal Capillary Refill Skin: Warm, Dry, Intact Neurological: No New Focal Deficit, Normal Gait, Normal Speech, Normal Tone Psy/Mental Status: Alert, Normal Affect, Normal Mood - Problem List Review Problem List Initiated/Reviewed/Updated: Yes - Assessment Assessment:: PPD # 1 S/P Doing well - Plan Plan:: PLAN: Continue present care Discharge planning for tomorrow. Increase ambulation Ibuprofen and Tylenol for pain control
[2020-02-13] MEDS: PRENATAL VITAMIN PO SCH (20:39)
[2020-02-14] MEDS: Acetaminophen 325 MG Tab PO PRN ×2 (03:12→07:58)
[2020-02-14] MEDS: Ibuprofen 800 MG Tab PO PRN (03:13)
[2020-02-14] MEDS: Docusate Sodium 100 MG Cap PO PRN (07:58)
[2020-02-14 09:20] VITALS: BP 122/74; PULSE 86
--- NOTE | 2020-02-14 09:29 | PCM.PNPP ---
- General Info Date of Service: 02/14/20 (PPD # 2 S/P ) Functional Status: Reports: Pain Controlled, Tolerating Diet, Ambulating, Urinating - Review of Systems General: Reports: No Symptoms HEENT: Reports: No Symptoms Pulmonary: Reports: No Symptoms Cardiovascular: Reports: No Symptoms Gastrointestinal: Reports: No Symptoms Genitourinary: Reports: No Symptoms Musculoskeletal: Reports: No Symptoms Skin: Reports: No Symptoms Neurological: Reports: No Symptoms Psychiatric: Reports: No Symptoms - General Info Date of Service: 02/14/20 (PPD # 2 S/P ) - Patient Data Vital Signs - Most Recent: Last Vital Signs Temp 98.5 F 02/14/20 08:00 Pulse 86 02/14/20 08:00 Resp 16 02/14/20 08:00 BP 122/74 02/14/20 08:00 Pulse Ox 99 02/14/20 08:00 Weight - Most Recent: 170 lb Med Orders - Current: Current Medications Acetaminophen (Tylenol) 650 mg PO Q4H PRN PRN Reason: Pain (Mild 1-3) and fever Last Admin: 02/14/20 07:58 Dose: 650 mg Benzocaine/Menthol (Dermoplast Pain Relief Williams) 0 gm TOP Q4H PRN PRN Reason: Perineal comfort measures Last Admin: 02/12/20 05:51 Dose: 1 spray Carboprost Tromethamine (Hemabate Ds) 250 mcg IM ASDIRECTED PRN PRN Reason: HEMORRHAGE Docusate Sodium (Colace) 100 mg PO BID PRN PRN Reason: Constipation Last Admin: 02/14/20 07:58 Dose: 100 mg Lactated Ringer's (Ringers, Lactated) 1,000 mls @ 125 mls/hr IV ASDIRECTED JAMIR Last Admin: 02/11/20 22:32 Dose: 125 mls/hr Oxytocin/Sodium Chloride (Pitocin In Ns 30 Unit/500 Ml) 30 unit in 500 mls @ 2 mls/hr IV TITRATE JAMIR; Protocol Last Titration: 02/12/20 04:00 Dose: 0 mls/hr Tranexamic Acid 1,000 mg/ (Sodium Chloride) 110 mls @ 660 mls/hr IV ONETIME PRN PRN Reason: Bleeding Ibuprofen (Motrin) 800 mg PO Q8H PRN PRN Reason: Mild Pain or Fever Last Admin: 02/14/20 03:13 Dose: 800 mg Lidocaine HCl (Xylocaine-Mpf 1%) 30 ml INJECT ASDIRECTED PRN PRN Reason: Perineal Repair Methylergonovine Maleate (Methergine) 0.2 mg IM ASDIRECTED PRN PRN Reason: Hemorrhage Metoclopramide HCl (Reglan) 10 mg IVPUSH ONETIME PRN PRN Reason: nausea Misoprostol (Cytotec) 800 mcg RECTAL ASDIRECTED PRN PRN Reason: Hemorrhage Vitamin (Pt Own Med) 0 each PO BEDTIME [facility] Last Admin: 02/13/20 20:39 Dose: 1 each Simethicone (Simethicone) 80 mg PO Q4H PRN PRN Reason: Gas Sodium Chloride (Saline Flush) 10 ml FLUSH ASDIRECTED PRN PRN Reason: Keep Vein Open Witch [place] (Medi-Pads) 1 each TOP Q4HR PRN PRN Reason: Perineal Comfort Measure Last Admin: 02/12/20 05:51 Dose: 2 pad Zolpidem Tartrate (Ambien) 5 mg PO BEDTIME PRN PRN Reason: Insomnia Discontinued Medications Epinephrine HCl (Adrenalin) Confirm Administered Dose 1 mg .ROUTE .STK-MED ONE Stop: 02/11/20 22:15 Last Admin: 02/12/20 03:00 Dose: Not Given Fentanyl (Sublimaze) Confirm Administered Dose 100 mcg .ROUTE .STK-MED ONE Stop: 02/11/20 22:14 Last Admin: 02/12/20 03:00 Dose: Not Given Oxytocin/Sodium Chloride (Pitocin In Ns 30 Unit/500 Ml) Confirm Administered Dose 30 unit in 500 mls @ as directed .ROUTE .STK-MED ONE Stop: 02/11/20 22:13 Last Admin: 02/12/20 06:36 Dose: Not Given Ondansetron HCl (Zofran) 4 mg IVPUSH Q4H PRN PRN Reason: Nausea/Vomiting Stop: 02/12/20 00:13 Prenat Multivit/Pit[place]airn/Iron/Folic Ac ( Plus Iron) 1 each PO DAILY [facility] Last Admin: 02/12/20 11:53 Dose: Not Given Sufentanil Citrate (Sufenta) Confirm Administered Dose 50 mcg .ROUTE .STK-MED ONE Stop: 02/11/20 22:15 Last Admin: 02/12/20 03:00 Dose: Not Given - Interaction Infant Disposition, : in Room with Family Interaction: Holding Feeding: Attempted ; Nursed Fair/Poor, Continues to Breastfeed, Encouraged to Breastfeed Support Person: - Recovery Exam Fundal Tone: Firm Fundal Level: 2 Fingerbreadths Below Umbilicus Fundal Placement: Midline Lochia Amount: Small Lochia Color: Rubra/Red Perineum Description: Intact, Minimal Bruising/Swelling, Other (see below) Other Perinuem Description: ice pack applied Episiotomy/Laceration: Approximated Bladder Status: Voiding Urinary Elimination: Voided - Exam General: Alert, Oriented, Cooperative, No Acute Distress HEENT: Pupils Equal, Pupils Reactive, EOMI, Mucous Membr. Moist/[place] Neck: Supple Lungs: Clear to Auscultation, Normal Respiratory Effort Cardiovascular: Regular Rate, Regular Rhythm, No Murmurs GI/Abdominal Exam: Normal Bowel Sounds, Soft, Non-Tender, No Distention Extremities: Normal Inspection, Normal Range of Motion, Non-Tender, No Pedal Edema, Normal Capillary Refill Skin: Warm, Dry, Intact Neurological: No New Focal Deficit, Normal Gait, Normal Speech, Normal Tone Psy/Mental Status: Alert, Normal Affect, Normal Mood - Problem List Review Problem List Initiated/Reviewed/Updated: Yes - My Orders Last 24 Hours: My Active Orders 02/14/20 09:23 Ready for Discharge [RC] PER UNIT ROUTINE - Assessment Assessment:: PPD # 2 S/P Doing well - Plan Plan:: PLAN: Discharge to home Ibuprofen and Tylenol for pain control Follow-up with Dr. Cohen for check-up. All questions answered.
--- NOTE | 2020-02-14 10:31 | DISCH ---
INDICATION FOR ADMISSION: Argelia is a 25-year-old, 2, para 1-0-0-1, female at 39-6/7 weeks gestation who presented to Labor and Delivery at [facility] in active labor. She was 6 cm dilated with a bulging bag of fontanez on admission. She tolerated her labor quite well. She did get an intrathecal for pain control and she was able to labor down. Once she began to feel pressure, she started pushing. She had a normal spontaneous vaginal delivery, RAFAELA, over a second-degree midline perineal laceration that was repaired without difficulty with 2-0 and 3-0 Vicryl suture. The cord was 3-vessel, not around the neck. The placenta was delivered by simple expression intact. EBL was approximately 300 mL. The patient tolerated her recovery quite well as well as the . She breastfed quite well. No complications occurred throughout her hospital stay. She was afebrile. Vital signs were stable. She tolerated her diet well and ambulated quite well. She had minimal lochia. She was discharged to home on day #2. LABORATORY AND DIAGNOSTIC STUDIES: 02/11/2020, WBC 14.8, hemoglobin 12.6, hematocrit 36.6, platelet count 247,000. 02/13/2020, WBC 14.3, hemoglobin 10.9, hematocrit 32.8, platelet count 198,000. DISCHARGE INSTRUCTIONS: 1. Discharged to home. 2. Follow up with Dr. Cohen for recheck on her within the next couple of days. 3. Follow up with Dr. Cohen for herself within 6 weeks. 4. No douching, tampons, intercourse for 6 weeks. 5. Discharge instructions including activity, followup, medications, diet, and wound care were discussed with the patient. She understands these and is willing to comply with these. 6. Ibuprofen 800 mg every 6 to 8 hours p.r.n. pain. 7. Tylenol 500 mg 1 to 2 every 6 to 8 hours p.r.n. for pain. 8. The patient to continue . She does have a breast pump. DISCHARGE DIAGNOSES: 1. 39-6/7 weeks intrauterine . 2. Active labor. 3. Advanced dilation. 4. Artificial rupture of membranes. 5. Normal spontaneous vaginal delivery of a viable female infant, weighing 9 pounds 2 ounces, 20 inches long with score of 8 at one minute and 9 at five minutes. 6. Second-degree midline perineal laceration. 7. Intrathecal anesthesia. 8. Acute anemia secondary to blood loss. [facility] /[id number]
[2020-02-14] MEDS ORDERED: fentaNYL 100 MCG/2 ML SDV ITHECAL ONE (11:04)
[2020-02-14] MEDS ORDERED: EPINEPHrine 1 MG/1 ML Amp ONE (11:04)
== END 2020-02-14 11:05 | disposition home or self-care (01) | DRG 560 ==
LOC: DL.OBCHECK 21:17 → DL.OB 22:00 → OBSVTOIN 02-12 01:02
PROVIDERS: ADMIT Family Medicine; ATTEND Family Medicine
PROC: 10E0XZZ Delivery of Products of Conception, External Approach (ICD-10-PCS; principal; 2020-02-12)
PROC: 0KQM0ZZ Repair Perineum Muscle, Open Approach (ICD-10-PCS; 2020-02-12)
PROC: 3E0S3BZ Introduction of Anesthetic Agent into Epidural Space, Percutaneous Approach (ICD-10-PCS; 2020-02-12)
PROC: 00HU33Z Insertion of Infusion Device into Spinal Canal, Percutaneous Approach (ICD-10-PCS; 2020-02-12)
DX: O36.63X0 Maternal care for excessive fetal growth, third trimester, not applicable or unspecified (principal); Z3A.39 39 weeks gestation of pregnancy; Z37.0 Single live birth; O99.02 Anemia complicating childbirth; D62 Acute posthemorrhagic anemia; O70.1 Second degree perineal laceration during delivery; Z28.82 Immunization not carried out because of caregiver refusal
CPT/HCPCS: 36415; 51701; 59409; 85027; A9270-GY; J0171; J2590; J3010; J7120

== ENCOUNTER 2021-09-25 16:29 | Inpatient (IN) | payer BC ==
[2021-09-25] MEDS ORDERED: Sodium Chloride 0.9% 10 ML Syringe FLUSH PRN (16:53)
[2021-09-25] MEDS ORDERED: Oxytocin/Normal Saline 30 UNIT/500 ML BAG IV SCH (17:00)
[2021-09-25] MEDS ORDERED: Carboprost Tromethamine 250 MCG/1 ML Amp IM PRN (17:41)
[2021-09-25] MEDS ORDERED: Methylergonovine 0.2 MG/1 ML Amp IM PRN (17:41)
[2021-09-25] MEDS ORDERED: Tranexamic Acid 1,000 MG in Sodium Chloride 0.9% 100 ML IV PRN (17:41)
[2021-09-25] MEDS ORDERED: Metoclopramide 10 MG/2 ML SDV IVPUSH PRN (17:41)
[2021-09-25] MEDS ORDERED: Lidocaine 1% 30 ML SDV INJECT PRN (17:41)
[2021-09-25] MEDS ORDERED: Misoprostol 400 MCG (4 X 100 MCG TAB) RECTAL PRN (17:41)
--- NOTE | 2021-09-25 19:20 | HP ---
CHIEF COMPLAINT: Increased force and frequency of contractions. HISTORY OF PRESENT ILLNESS: 26-year-old G3, P2-0-0-2 female at 39 weeks 4 days' gestation confirmed by 25-week ultrasound, presents with increased frequency of contractions over the past 6 days. They have been intermittent in the past 6 days, occurring every 5 minutes in the evenings, lasting all night, and then spacing out during the daytime. When checked, she had made cervical change from 3 cm 40% effaced and -1 station to 4 cm, 60% - 70% effaced and -2 station. Also, due to the patient not feeling well and mildly increased blood pressures from her normal range, she was admitted for augmentation of labor. She denies any leakage of fluid or bleeding, and reports good movement. OB HISTORY: overall unremarkable with normal 25-week ultrasound. Past history of 2 previous vaginal deliveries without complication and only significant for macrosomia. The first was on 04/20/2017 resulting in a term male at 40 week 1 day gestation at 7lbs 0 oz. The second was on 02/12/2020 and resulted in a term male at 40 weeks gestation weighing 9 lbs 2.6 oz. Both received intrathecal. LABS: Blood type O positive, antibody screen negative, rubella immune, GBS negative. RPR, hepatitis B surface antigen, HIV, and hepatitis C nonreactive. 1-hour oral glucose tolerance test of 138. Declined gonorrhea and chlamydia screen. Third trimester hemoglobin 10.7 and platelets 235. PAST MEDICAL HISTORY: Significant for history of macrosomal , depression, endometriosis, and migraines. She also had history of chickenpox. SURGICAL HISTORY: Four laparoscopic surgeries for endometriosis, tonsillectomy in 2013, and wisdom teeth extraction. FAMILY HISTORY: Overall unremarkable with a paternal grandmother with ovarian cancer. SOCIAL HISTORY: Lives in [place] with , Tamir, who is a gyroscopic instrument tester. 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 They live with their son, Gabriel, and daughter, Milad. REVIEW OF SYSTEMS: The patient denies any fever, chills, headaches, current blurry vision. She does have history of some visual changes throughout her third trimester. No chest pain, shortness of breath. No significant leg edema, nausea, or vomiting. MEDICATION: vitamin. ALLERGIES: Intolerance to Zofran gives her migraines. OBJECTIVE: General: Pleasant, well-appearing 26-year-old female. Vital Signs: Temperature 98.3, blood pressure 140/87, pulse 87. HEENT: Unremarkable. Heart: Regular without murmur. Respiratory: Clear to auscultation bilaterally. Good chest expansion. Abdomen: Gravid, soft, nontender. heart tones 140, category 1. Positive accelerations. [place] shows no contractions. Cervix 4 cm dilated, 60% to 70% effaced, -1 station. Extremities: No edema, erythema, or tenderness noted. Skin: No rashes, lesions, jaundice, or cyanosis. Neurologic: Appropriate with no focal deficits. ASSESSMENT: 1. 39 and 4 week intrauterine confirmed with 25-week ultrasound. 2. G3, P2-0-0-2. 3. History of macrosomal infant. 4. Blood type O positive, Rubella immune, group B Streptococcus negative. 5. History of depression. PLAN: Admit to hospital at this time followed by artificial rupture of membranes and possible augmentation with Pitocin if contractions do not increase. She is also planning intrathecal for pain management and will be anticipating vaginal delivery as long as clinical course continues. All questions have been answered. The patient was seen by myself and Dr. Bryant. Assessment and plan are under advisement of Dr. Bryant. [facility] /[id number] MTDD
[2021-09-25] MEDS: Lactated Ringers 1,000 ML IV SCH (22:15)
[2021-09-25] MEDS ORDERED: fentaNYL 100 MCG/2 ML SDV IVPUSH STA (23:28)
[2021-09-25] MEDS ORDERED: Ondansetron 4 MG/2 ML SDV IVPUSH PRN (23:44)
[2021-09-26] MEDS ORDERED: EPINEPHrine 1 MG/ML SDV ONE
[2021-09-26] MEDS ORDERED: fentaNYL 100 MCG/2 ML SDV ONE
[2021-09-26] MEDS ORDERED: Sodium Bicarbonate 4.2% 2.5 MEQ/5 ML SDV ONE (00:01)
[2021-09-26] MEDS: Lactated Ringers 1,000 ML IV SCH (00:18)
--- NOTE | 2021-09-26 00:23 | PCM.SN.2 ---
- Free Text/Narrative Note: Sitting position, sterile prep and drape. 1% lidocaine w bicarb for skinwheal to L2 L3 interspace, introducer, 24 ga Pencan x 1. Pos CSF, neg heme, neg parasthesia. 0.1 ml 1:1000 pf epi, 20 mcg pf sufenta, 30 mcg pf fentanyl, 0.4 ml pf ns and 6 mg of 0.75% pf marcaine injected after CSF aspiration. Pt to R lateral position. Procedure time 2355 to 0034
[2021-09-26] MEDS ORDERED: Oxytocin 10 Units/1 ML SDV IM PRN (03:36)
[2021-09-26] MEDS ORDERED: Simethicone 80 MG Tab.Chew PO PRN (03:36)
[2021-09-26] MEDS ORDERED: Benzocaine/Menthol 20%-0.5% Spray 78 GM Cannister TOP PRN (03:36)
[2021-09-26] MEDS ORDERED: Zolpidem 5 MG Tab PO PRN (03:36)
[2021-09-26] MEDS: Ibuprofen 800 MG Tab PO PRN ×3 (04:58→20:36)
--- NOTE | 2021-09-26 05:51 | DEL ---
DATE: 09/26/2021 PREOPERATIVE DIAGNOSES: 1. Intrauterine at 39 weeks 5 days gestation, confirmed with 25-week ultrasound. 2. History of macrosomia. 3. G3, P2-0-0-2. 4. Blood type O positive, rubella immune, group B strep negative. 5. History of depression. POSTOPERATIVE DIAGNOSES: 1. Intrauterine at 39 weeks 5 days gestation, confirmed with 25-week ultrasound, status post spontaneous vaginal delivery with second degree laceration repair. 2. History of macrosomia. 3. G3, P3-0-0-3. 4. Blood type O positive, rubella immune, group B strep negative. 5. History of depression. PROCEDURES PERFORMED: Artificial rupture of membrane, intrathecal anesthesia, and spontaneous vaginal delivery with second degree laceration repair. CONSTRUCTION ADMINISTRATOR: CINDA Ross. ANESTHESIA/ANALGESIA: The patient received intrathecal during 1st stage of labor. ESTIMATED BLOOD LOSS: 450 mL. FINDINGS: Male , score 9 and 9, weight 3645 g, 8 pounds 1 ounce. Nuchal cord x1 reduced bluntly with delivery. SUMMARY OF EVENTS: A 26-year-old female with the above-listed diagnoses, presents for increased frequency of contractions over the past 6 days. They have been intermittent, occurring every 5 minutes in the evenings, lasting all night and spacing out in the daytime. When checked, she had made cervical change and thus she was admitted for augmentation of labor. She later then received artificial rupture of membranes, Pitocin augmentation, and intrathecal anesthesia. She then progressed from 6 cm to complete in a few hours, and at that time myself and Dr. Bryant were called to the room. We donned sterile gown and gloves, and with the patient pushing approximately 30 minutes, vertex was delivered in HUY presentation, followed by anterior and posterior shoulders as well as rest of without difficulty. Nuchal cord was then reduced with somersaults maneuver. was placed on mother's abdomen. Mouth and nares were suctioned. Cord was doubly clamped, cut, and at the same time was resuscitated. Approximately 10 mL of cord blood was obtained for labs. Placenta was then delivered with gentle cord traction and fundal massage within the next 30 minutes. While waiting for the placenta to deliver, the perineum, vagina, and perirectal areas were examined and noted to have a second degree laceration. Repair for this was completed with 3-0 Vicryl in usual fashion. After repair, the patient continued to trickle blood so the lower uterine segment was examined bimanually and removal of blood clots was performed with finger uterine curettage. After clots were removed, uterine massage continued and revealed decreasing uterine bleeding. No further management was indicated. Mother and infant were currently stable at the time of dictation. The patient was seen by myself and Dr. Bryant. All procedures were under the advisement of Dr. Bryant. [facility] /[id number] MTDBettie
[2021-09-26] MEDS: Ferrous Sulfate 325 MG Tab PO SCH ×2 (08:32→20:25)
[2021-09-26] MEDS: Docusate Sodium 100 MG Cap PO PRN ×2 (08:33→20:36)
[2021-09-26] MEDS: Prenatal Multivitamin with Calcium/Folic Acid/Iron Tab PO SCH (08:33)
[2021-09-26] MEDS: Acetaminophen 325 MG Tab PO PRN ×3 (08:36→20:37)
--- NOTE | 2021-09-26 11:41 | PN ---
DATE: 09/26/2021 Status post day #1 of normal spontaneous vaginal delivery. SUBJECTIVE: The patient is tolerating p.o., ambulating, urinating without difficulties. The pain is under control with ibuprofen. Bleeding has been moderate with some passage of clots, but is decreasing. Mother has no concerns with baby or herself. She denies any preeclampsia symptoms, chest pain, shortness of breath, fever, or chills. OBJECTIVE: Vital Signs: Temperature 98.2, heart rate 114, blood pressure 100/70, respiratory rate 16, O2 of 98. Lungs: Clear to auscultation bilaterally. Heart: S1, S2. Regular rate and rhythm. Abdomen: Firm uterus below umbilicus. Extremities: No erythema, tenderness, or warmth noted. Skin: Moderately pale. LABORATORY DATA: Hemoglobin and platelets post delivery are currently pending. ASSESSMENT: 1. G3, now P3 female at 39 weeks and 5 days' gestation, status post normal spontaneous vaginal delivery with second-degree laceration repair under intrathecal anesthesia. 2. Blood type O-positive, rubella immune, group B streptococcus negative. 3. History of macrosomic infant. 4. History of depression. PLAN: We will continue to follow clinically and closely. Hemoglobin labs will be completed today. However, we will start iron 325 mg twice a day due to blood loss of 450 mL at delivery and hemoglobin of 10.2 on admission. Tentative plan for discharge tomorrow. Plan was discussed with parents. They understand, agree, and all questions have been answered. The patient was seen by myself and Dr. Bryant. Assessment and plan under advisement of Dr. Bryant. [facility] /[id number]
[2021-09-26 22:17] VITALS: BP 121/59; PULSE 108
[2021-09-27] MEDS: Acetaminophen 325 MG Tab PO PRN ×2 (03:09→11:53)
[2021-09-27] MEDS: Prenatal Multivitamin with Calcium/Folic Acid/Iron Tab PO SCH (08:12)
[2021-09-27] MEDS: Ibuprofen 800 MG Tab PO PRN (08:12)
[2021-09-27] MEDS: Ferrous Sulfate 325 MG Tab PO SCH (08:13)
[2021-09-27] MEDS: Docusate Sodium 100 MG Cap PO PRN (08:13)
--- NOTE | 2021-09-27 11:29 | DISCH ---
ADMITTING DIAGNOSES: 1. Intrauterine at 39 weeks 5 days' gestation confirmed with 25-week ultrasound. 2. G3, P2-0-0-2. 3. Blood type O positive, rubella immune, group B strep negative. 4. History of macrosomia. 5. History of depression. DISCHARGE DIAGNOSES: 1. Intrauterine at 39 weeks 5 days' gestation confirmed with 25-week ultrasound, status post spontaneous vaginal delivery with second-degree laceration repair. 2. G3, P3-0-0-3. 3. Blood type O positive, rubella immune, group B strep negative. 4. History of macrosomia. 5. History of depression. PROCEDURE PERFORMED: Spontaneous vaginal delivery with second-degree laceration repair under intrathecal anesthesia. BRIEF HISTORY: 26-year-old female with above-listed diagnoses, presents for intermittent contractions, who was then admitted for augmentation of labor. She received Pitocin administration and intrathecal anesthesia for pain. Stage I of labor proceeded after Pitocin augmentation and lasted for a few hours; followed by stage II of labor, which lasted for approximately 30 minutes; and stage III, which was approximately 30 minutes. Estimated blood loss was 450 mL. HOSPITAL COURSE: Has been good. Bleeding has been decreasing since delivery with gentle passage of clots. She is breast-feeding well, ambulating, urinating, and passing gas without difficulty. Denies any preeclamptic signs or symptoms. Has no chest pain, shortness of breath. Currently, there are no signs of infection, hemorrhage, or other complications. She is requesting discharge home today with family. DISCHARGE CONDITION: Good. PHYSICAL EXAMINATION: Vital Signs: Temp is 98.2, pulse 108, blood pressure 121/59, respiratory rate 18, O2 sat 99%. Heart: Regular without obvious murmur. Lungs: Clear to auscultation bilaterally with good chest expansion. Abdomen: Soft, nontender. Fundus is below umbilicus and firm. Extremities: No edema, erythema, or tenderness. LABORATORY DATA: Admission hemoglobin 12.2, platelets 207. Discharge hemoglobin 7.4, platelets 221. DISPOSITION: Home with family. MEDICATIONS: [id number] Tylenol and ibuprofen as needed for pain. Continue vitamin once daily. Start taking iron 325 mg twice a day. We will also restart her fluoxetine, which she was taking prior to . FOLLOWUP: Will be seen in 6 weeks for routine examination with Dr. Bryant and on Saturday, 09/29, for the first exam. INSTRUCTIONS: Routine post vaginal delivery instructions for mother were provided. All questions answered. The patient was seen by myself and Dr. Bryant. Assessment and plan under advisement by Dr. Bryant. [facility] /[id number] [facility]
== END 2021-09-27 12:30 | disposition home or self-care (01) | DRG 560 ==
LOC: DL.OBCHECK 16:29 → DL.OB 17:02 → OBSVTOIN 09-26 02:55
PROVIDERS: ADMIT Family Medicine; ATTEND Family Medicine
PROC: 10E0XZZ Delivery of Products of Conception, External Approach (ICD-10-PCS; principal; 2021-09-26)
PROC: 10907ZC Drainage of Amniotic Fluid, Therapeutic from Products of Conception, Via Natural or Artificial Opening (ICD-10-PCS; 2021-09-26)
PROC: 0KQM0ZZ Repair Perineum Muscle, Open Approach (ICD-10-PCS; 2021-09-26)
PROC: 3E0R3BZ Introduction of Anesthetic Agent into Spinal Canal, Percutaneous Approach (ICD-10-PCS; 2021-09-26)
PROC: 00HU33Z Insertion of Infusion Device into Spinal Canal, Percutaneous Approach (ICD-10-PCS; 2021-09-26)
DX: O70.1 Second degree perineal laceration during delivery (principal); Z37.0 Single live birth; Z3A.39 39 weeks gestation of pregnancy; Z20.822 Contact with and (suspected) exposure to COVID-19
CPT/HCPCS: 01967; 36415; 51701; 59409; 85027; A9270-GY; J2590; J7120; U0002

== ENCOUNTER 2022-06-07 07:08 | Emergency (ER) | payer BC ==
[2022-06-07] MEDS ORDERED: Sodium Chloride 0.9% 1,000 ML IV ONE (07:42)
[2022-06-07] MEDS ORDERED: Metoclopramide 10 MG/2 ML SDV IVPUSH ONE (07:42)
[2022-06-07] MEDS ORDERED: diphenhydrAMINE 50 MG/ML SDV IVPUSH ONE (07:45)
[2022-06-07] MEDS ORDERED: Ketorolac 30 MG/ML SDV IVPUSH ONE (07:45)
[2022-06-07] MEDS ORDERED: Sodium Chloride 0.9% 10 ML Syringe FLUSH PRN (07:45)
[2022-06-07 08:09] VITALS: BP 117/67; PULSE 117
[2022-06-07 08:58] LABS: CORONAVIRUS COVID-19 NAA POSITIVE (NEGATIVE)
[2022-06-07] MEDS ORDERED: Promethazine 25 MG/ML SDV IM ONE (09:24)
[2022-06-07] MEDS ORDERED: Butorphanol 2 MG/ML SDV IVPUSH ONE (09:24)
== END 2022-06-07 09:30 | disposition home or self-care (01) ==
LOC: DL.ED 07:08
DX: U07.1 COVID-19 (principal); G43.909 Migraine, unspecified, not intractable, without status migrainosus; Z88.8 Allergy status to other drugs, medicaments and biological substances; Z79.899 Other long term (current) drug therapy
CPT/HCPCS: 0240U; 96361; 96372; 96374; 96375; 99283; 99283-25; J0595; J1200; J1885; J2550; J2765; J3360; J3490; J7030

== ENCOUNTER 2025-06-18 22:05 | Emergency (ER) | payer BC ==
[2025-06-18 22:43] VITALS: BP 135/88; PULSE 66
== END 2025-06-18 22:58 | disposition home or self-care (01) ==
LOC: DL.ED 22:05
DX: N90.7 Vulvar cyst (principal); N81.10 Cystocele, unspecified; N76.89 Other specified inflammation of vagina and vulva; Z88.8 Allergy status to other drugs, medicaments and biological substances; Z79.899 Other long term (current) drug therapy; Z86.16 Personal history of COVID-19
CPT/HCPCS: 99283